=== PATIENT | male | born 1955 | race Caucasian/White ===

== ENCOUNTER 2020-12-04 11:06 | Emergency (ER) | payer MEDICARE, OTHER, SELFPAY ==
[2020-12-04] VITALS (23 sets, daily range): BP systolic 114–140; BP diastolic 80–102; PULSE 69–104; RESP 7–20; TEMP 36.8–36.9; O2SAT 91–97
--- NOTE | 2020-12-04 11:00 | RT.EKG_ITS ---
APPROVED REPORT Exam: Resting ECG Patient Location: E HR:97 bpm ECG Measurements Heart Rate 97 AXIS NV 238 P 9 QRSd 86 QRS -32 QT 344 T 36 QTc 438 Conclusion Sinus rhythm...normal P axis, V-rate 60- 99 Prolonged NV interval...NV >215, V-rate 91-120 Left axis deviation...QRS axis (-30,-90). No STEMI. I have reviewed and interpreted ECG and agree with software generated interpretation.
--- NOTE | 2020-12-04 11:15 | ED.GENADUL_ITS ---
Discharge Plan Disposition Patient Disposition: HOME Condition: Stable Discharge Details Clinical Impression: Atypical chest pain, Abdominal pain Primary Care Provider: Unknown,Unknown ED Provider: Stacia Garcia Home Meds and New Rx's Prescriptions: Continued saw palmetto 450 mg Capsule 900 mg PO QPM RF: 0 famotidine [Pepcid AC] 20 mg Tablet 20 mg PO QPM RF: 0 Discharge Instructions Instructions: Chest Pain (ED), Abdominal Pain (ED) Additional Instructions: You can consider stopping Pepcid and starting [id number] Prilosec once daily for the next 2 weeks to see if this helps your chest or abdominal pain. An order has been placed for an outpatient stress test. You will be contacted by the radiology department to schedule this outpatient stress test. You will receive a call from care management regarding a follow-up appointment with a primary care doctor to establish care and for referral to general surgery if your symptoms do not improve or worsen for consideration for upper endoscopy and also for consideration for outpatient pulmonary function test to rule out possible lung disease as a cause of your chronic shortness of breath. Return immediately to the emergency department if you develop any worsening or new concerning symptoms. Discharge Data Discharge Date/Time-TO BE ENTERED AT DEPARTURE: 12/04/20 15:03 Discharge Physician: Stacia Garcia Medical Decision Making 64-year-old male with a history of BPH, hernia repair and cholecystectomy presents for lower chest and upper abdominal pain for the past 2 days. EKG notes a rate 97, sinus, no STEMI, nondiagnostic. Patient has upper abdominal tenderness to palpation. Lungs clear. Presentation appears more likely consistent with a GI etiology rather than cardiac. Considering patient's age, will obtain a cardiac work-up, CT chest abdomen and pelvis and give Pepcid and GI cocktail reassess. Labs and imaging reviewed and unremarkable. Patient reassessed and he feels much better. We will plan on repeat troponin and EKG. Repeat troponin negative. Repeat EKG unchanged. Patient states that he has had chronic occasional shortness of breath with exertion over the past 5 or more years. He states he was exposed to smokers his whole life. He has not had a primary care doctor for several years. Will refer patient for outpatient stress test. Patient placed on care management list to arrange for a follow-up appointment with the primary care doctor to establish care to refer to surgery if symptoms do not improve or worsen for consideration for upper endoscopy or to respiratory therapy for pulmonary function test to rule out a pulmonary source. Usual and customary return precautions given prior to discharge. Medical Records Medical records reviewed: Yes I reviewed the patient's medical records. Imaging Data Radiologic Study: Radiologist's impression: CT CHEST PE ABD PELVIS W CLINICAL HISTORY: lower chest pain, upper abd pain, cough. TECHNIQUE: Imaging Protocol: Axial CT angiography was performed with multi- slice acquisition and multi-planar and/or 3D reconstructions. CONTRAST MATERIAL: Intravenous: Omnipaque 350 Contrast volume:100 mL COMPARISON: No exams were available for comparison FINDINGS: CHEST: Pulmonary Arteries: No evidence of filling defect to suggest pulmonary emboli. Tracheobronchial tree: Patent where visualized. Mediastinum and Adeline: No dominant adenopathy or fluid collection. Pulmonary parenchyma: No consolidation or dominant measurable mass. There are areas of atelectasis in the lungs. Pleura: No effusion or pneumothorax. Heart: Mild cardiomegaly. Mild coronary artery calcification. Aorta: Thoracic aorta non-dilated. Mild atherosclerosis. No dissection. Bones: Within normal limits for the patient's age. ABDOMEN: Liver: Normal density. No measurable mass. Portal, Superior Mesenteric, and Splenic Veins: Unremarkable. Gallbladder and Biliary Tract: Status post cholecystectomy. No significant biliary ductal dilatation. Pancreas: Normal density, no abnormal calcifications or inflammatory process. Spleen: Normal. Adrenals: No masses seen. Kidneys: Normal size, contour and axis. Nonobstructing 2 mm stone in the midpole of the left kidney. No masses seen. Abdominal Aorta: Abdominal portion non-dilated. Mild atherosclerosis. Bowel: No obstruction or bowel wall thickening. No evidence of appendicitis. Peritoneal Cavity: No ascites, collection or mesenteric inflammatory response. Lymph Nodes: Within normal limits. Bones: Unremarkable. Soft Tissues: Unremarkable. PELVIS: Bladder: Symmetric distention, no gross wall thickening. Reproductive Organs: The prostate gland is mildly enlarged. Lymph Nodes: Within normal limits. Bones: Within normal limits. IMPRESSION: 1. No evidence of pulmonary embolism, thoracic aortic dissection or aneurysm. 2. No acute pulmonary process. 3. No acute abdominal or pelvic process. 4. Findings were discussed with the emergency department on the date of the examination. Lab Data Lab results reviewed: Yes I reviewed the patient's lab results. Labs: Laboratory Tests Range/Units 12/04/20 12/04/20 12/04/20 11:17 11:17 11:17 WBC (4.4-10.8) 10^3/uL 6.96 RBC (4.36-5.78) 10^6/uL 5.14 Hgb (13.5-17.5) g/dL 16.2 Hct (40.0-50.0) % 47.2 MCV (80-95) fL 91.8 MCH (27.0-33.0) pg 31.5 MCHC (32.0-36.0) % 34.3 RDW (11.8-14.1) % 11.9 Plt Count (130-400) 10^3/uL 215 MPV (8.0-11.0) fL 9.8 Immature Gran % 0.3 Neutrophils % 74.8 Lymphocytes % 16.1 Monocytes % 8.0 Eosinophils % 0.4 Basophils % 0.4 Nucleated RBC % % 0 Absolute Neutrophils (1.2-6.7) 10^3/uL 5.20 Absolute Lymphocytes (1.2-3.4) 10^3/uL 1.12 L Absolute Monocytes (0.1-0.8) 10^3/uL 0.56 Absolute Eosinophils (0.0-0.7) 10^3/uL 0.03 Absolute Basophils (0.0-0.2) 10^3/uL 0.03 PT (9.3-11.0) sec 10.1 INR (0.9-1.1) 1.0 APTT (21.0-27.5) sec 25.7 Sodium (136-145) mmol/L 140 Potassium (3.5-5.1) mmol/L 3.7 Chloride (98-107) mmol/L 104 Carbon Dioxide (21.0-32.0) mmol/L 25.5 Anion Gap (3-11) mmol/L 10.5 BUN (7-18) mg/dL 12 Creatinine (0.70-1.30) mg/dL 1.0 Estimated GFR/1.73 m2 (mL/min/1.73m2) >= 60.00 Glucose (74-106) mg/dL 102 Calcium (8.5-10.1) mg/dL 9.3 Magnesium (1.8-2.4) mg/dL 2.0 Total Bilirubin (0.2-1.0) mg/dL 0.6 AST (15-37) U/L 14 L ALT (16-63) U/L 34 Alkaline Phosphatase (46-116) U/L 76 Troponin I (<0.06) ng/mL < 0.05 Total Protein (6.4-8.2) g/dL 7.7 Albumin (3.4-5.0) g/dL 4.0 Lipase (73-393) U/L COVID-19 Source SARS-CoV-2 (PCR) (Negative) Influenza Type A (PCR) (Negative) Influenza Type B (PCR) (Negative) RSV (PCR) (Negative) Range/Units 12/04/20 12/04/20 12/04/20 11:17 14:10 14:20 WBC (4.4-10.8) 10^3/uL RBC (4.36-5.78) 10^6/uL Hgb (13.5-17.5) g/dL Hct (40.0-50.0) % MCV (80-95) fL MCH (27.0-33.0) pg MCHC (32.0-36.0) % RDW (11.8-14.1) % Plt Count (130-400) 10^3/uL MPV (8.0-11.0) fL Immature Gran % Neutrophils % Lymphocytes % Monocytes % Eosinophils % Basophils % Nucleated RBC % % Absolute Neutrophils (1.2-6.7) 10^3/uL Absolute Lymphocytes (1.2-3.4) 10^3/uL Absolute Monocytes (0.1-0.8) 10^3/uL Absolute Eosinophils (0.0-0.7) 10^3/uL Absolute Basophils (0.0-0.2) 10^3/uL PT (9.3-11.0) sec INR (0.9-1.1) APTT (21.0-27.5) sec Sodium (136-145) mmol/L Potassium (3.5-5.1) mmol/L Chloride (98-107) mmol/L Carbon Dioxide (21.0-32.0) mmol/L Anion Gap (3-11) mmol/L BUN (7-18) mg/dL Creatinine (0.70-1.30) mg/dL Estimated GFR/1.73 m2 (mL/min/1.73m2) Glucose (74-106) mg/dL Calcium (8.5-10.1) mg/dL Magnesium (1.8-2.4) mg/dL Total Bilirubin (0.2-1.0) mg/dL AST (15-37) U/L ALT (16-63) U/L Alkaline Phosphatase (46-116) U/L Troponin I (<0.06) ng/mL < 0.05 Total Protein (6.4-8.2) g/dL Albumin (3.4-5.0) g/dL Lipase (73-393) U/L 97 COVID-19 Source Nasopharyx SARS-CoV-2 (PCR) (Negative) Negative Influenza Type A (PCR) (Negative) Negative Influenza Type B (PCR) (Negative) Negative RSV (PCR) (Negative) Negative ECG Data Attestation: I personally reviewed and interpreted this ECG (s) as follows: Interpretation: #1 -- Rate of 97, sinus, no acute ST elevation or depression. Prolonged WI interval. WI 238. QRS 86. QTc 438. #2 -- Rate of 92, sinus, no acute ST elevation or depression. Prolonged WI interval. WI 250. QRS 90. QTc 456. HPI General Mode of arrival: ambulatory . Date/Time Provider Initiated Documentation: 12/04/20 11:15 . Limitations to Documentation: no limitations . Information obtained by: patient . HPI Narrative: Patient is a 64-year-old male with a history of BPH, hernia repair and cholecystectomy presents for lower chest and upper abdominal pain for the past 2 days. Patient states he was walking in deep snow 2 days ago at home when he developed lower chest and upper abdominal pain. He states the pain is sharp and currently 5/10. He denies any aggravating or alleviating factors. He took Advil yesterday without relief. He states the pain has been constant but without radiation. He admits to a chronic cough with yellow sputum for the past year. He denies any fever, shortness of breath, dizziness, nausea, vomiting. He denies any recent travel, recent surgery or recent injury. Related Data Home Medications Medication Instructions Recorded Confirmed famotidine [Pepcid AC] 20 mg PO QPM 12/04/20 12/04/20 saw palmetto 900 mg PO QPM 12/04/20 12/04/20 Allergies Allergy/AdvReac Type Severity Reaction Status Date / Time No Known Allergies Allergy Unverified 12/04/20 11:19 Review of Systems All systems reviewed & are unremarkable except as noted in HPI and below Constitutional Constitutional: Reports as per HPI, Denies chills and Denies fever(s) Eyes Eyes: Denies blurry vision ENT Ears, Nose, Mouth, and Throat: Denies dizziness, Denies sore throat and Denies throat swelling Cardiovascular Cardiovascular: Denies chest pain and Denies dyspnea Respiratory Respiratory: Denies cough and Denies dyspnea Gastrointestinal Gastrointestinal: Reports abdominal pain, Denies diarrhea and Denies vomiting Genitourinary Genitourinary: Denies hematuria and Denies dysuria Musculoskeletal Musculoskeletal: Denies back pain and Denies numbness Integumentary/Breasts Skin/Breast: Denies lesions and Denies rash Neurologic Neurologic: Denies dizziness, Denies localized weakness and Denies numbness Allergic/Immunologic Allergic/Immunologic: Denies throat swelling [facility] Medical History (Updated 12/04/20 @ 14:33 by Stacia Garcia DO) BPH (benign prostatic hyperplasia) Surgical History (Updated 12/04/20 @ 11:49 by Stacia Garcia DO) History of hernia repair Hx of cholecystectomy Social History Smoking/Tobacco Use Status: Never Smoking risk assessment performed?: Yes Alcohol Intake: former Do you feel safe at home: Yes Do you feel safe in your relationship?: Yes Exam Const General: cooperative, healthy appearing and no acute distress HENMT Head: normal to inspection Face and sinus: normal facial exam Eyes General: appearance normal, both eyes and all related structures EOM: EOM intact bilaterally Neck Neck: normal visual inspection and No submandibular swelling Lymphatic: no lymphadenopathy noted Chest Chest: normal inspection of the chest and no tenderness Resp Effort & Inspection: normal respiratory effort and able to speak in complete sentences Auscultation: clear to auscultation bilaterally Cardio Rate: regular rate Rhythm: regular rhythm GI Inspection: normal to inspection Palpation: soft, not firm, not rigid and tender in the epigastrum, in the LUQ and in the RUQ Auscultation: normal bowel sounds Skin General skin exam: no rashes or lesions noted Neuro General: patient alert, patient awake and patient oriented x3 Cognition: normal cognition Speech: speech normal Motor: muscle tone normal throughout Sensory Exam: no sensory deficits noted Extrem General: normal to inspection, full ROM, capillary refill normal, no calf tenderness bilaterally and no edema Psych Appearance: grossly normal Mental Status: mental status grossly normal Speech and Movement: speech and movement normal Affect: normal affect
--- NOTE | 2020-12-04 11:30 | DI.CT_ITS ---
EXAM: CT CHEST PE ABD PELVIS W CLINICAL HISTORY: lower chest pain, upper abd pain, cough. TECHNIQUE: Imaging Protocol: Axial CT angiography was performed with multi-slice acquisition and mu lti-planar and/or 3D reconstructions. CONTRAST MATERIAL: Intravenous: Omnipaque 350 Contrast volume:100 mL COMPARISON: No exams were available for comparison FINDINGS: CHEST: Pulmonary Arteries: No evidence of filling defect to suggest pulmonary emboli. Tracheobronchial tree: Patent where visualized. Mediastinum and Adeline: No dominant adenopathy or fluid collection. Pulmonary parenchyma: No consolidation or dominant measurable mass. There are areas of atelectasis in the lungs. Pleura: No effusion or pneumothorax. Heart: Mild cardiomegaly. Mild coronary artery calcification. Aorta: Thoracic aorta non-dilated. Mild atherosclerosis. No dissection. Bones: Within normal limits for the patient's age. ABDOMEN: Liver: Normal density. No measurable mass. Portal, Superior Mesenteric, and Splenic Veins: Unremarkable. Gallbladder and Biliary Tract: Status post cholecystectomy. No significant biliary ductal dilatation . Pancreas: Normal density, no abnormal calcifications or inflammatory process. Spleen: Normal. Adrenals: No masses seen. Kidneys: Normal size, contour and axis. Nonobstructing 2 mm stone in the midpole of the left kidney. No masses seen. Abdominal Aorta: Abdominal portion non-dilated. Mild atherosclerosis. Bowel: No obstruction or bowel wall thickening. No evidence of appendicitis. Peritoneal Cavity: No ascites, collection or mesenteric inflammatory response. Lymph Nodes: Within normal limits. Bones: Unremarkable. Soft Tissues: Unremarkable. PELVIS: Bladder: Symmetric distention, no gross wall thickening. Reproductive Organs: The prostate gland is mildly enlarged. Lymph Nodes: Within normal limits. Bones: Within normal limits. IMPRESSION: 1. No evidence of pulmonary embolism, thoracic aortic dissection or aneurysm. 2. No acute pulmonary process. 3. No acute abdominal or pelvic process. 4. Findings were discussed with the emergency department on the date of the examination. RADIATION DOSE DELIVERED: 1,616.75mGy.cm Total DLP 1,616.75mGy.cm Total DLP DATA REPOSITORY: All CT scans at this facility are submitted to the National Radiology Data Registry (NRDR) Dose Index Registry (DIR) with the [employer] (A[employer]). RADIATION OPTIMIZATION: All CT scans at this facility use at least one of these dose optimization te chniques: automated exposure control; mA and/or kV adjustment per patient size (includes targeted exa ms where dose is matched to clinical indication); or iterative reconstruction.
[2020-12-04 12:01] LABS: Abs Immature Grans 0.02 10^3/uL (0.0-0.06); Absolute Basophil Count 0.03 10^3/uL (0.0-0.2); Absolute Eosinophil Count 0.03 10^3/uL (0.0-0.7); Absolute Lymphocyte Count 1.12 10^3/uL (1.2-3.4); Absolute Monocyte Count 0.56 10^3/uL (0.1-0.8); Basophils % 0.4; Eosinophils % 0.4; HCT 47.2 % (40.0-50.0); HGB 16.2 g/dL (13.5-17.5); Immature Grans % 0.3; Lymphocytes % 16.1; MCH 31.5 pg (27.0-33.0); MCHC 34.3 % (32.0-36.0); MCV 91.8 fL (80-95); MPV 9.8 fL (8.0-11.0); Neutrophils % 74.8; Nucleated RBC 0 %; Platelet Count 215 10^3/uL (130-400); RBC 5.14 10^6/uL (4.36-5.78); RDW 11.9 % (11.8-14.1); RDW-SD 40.5 fL; WBC 6.96 10^3/uL (4.4-10.8)
[2020-12-04] MEDS: Normal Saline 1,000 ML 1000 ML IV (12:01)
[2020-12-04] MEDS: FAMOTIDINE 20 MG/50 ML BAG 200 MG IVPB (12:03)
[2020-12-04 12:09] LABS: Lipase 97 U/L (73-393)
[2020-12-04 12:16] LABS: PTT Activated 25.7 sec (21.0-27.5); Prothrombin Time 10.1 sec (9.3-11.0)
[2020-12-04 12:18] LABS: ALT 34 U/L (16-63); AST 14 U/L (15-37); Alkaline Phosphatase 76 U/L (46-116); Anion Gap 10.5 mmol/L (3-11); BUN 12 mg/dL (7-18); Bilirubin, Total 0.6 mg/dL (0.2-1.0); CO2 25.5 mmol/L (21.0-32.0); Calcium 9.3 mg/dL (8.5-10.1); Chloride 104 mmol/L (98-107); Glucose 102 mg/dL (74-106); Potassium 3.7 mmol/L (3.5-5.1); Sodium 140 mmol/L (136-145); Total Protein 7.7 g/dL (6.4-8.2)
[2020-12-04 12:19] LABS: Troponin I < 0.05 ng/mL (<0.06)
[2020-12-04] MEDS: Omnipaque 350 MG/ML 50 ML BTL IJ ×4 (12:32→12:52)
[2020-12-04] MEDS: Normal Saline Flush 10 ML SYR IVP (12:33)
[2020-12-04] MEDS: Normal Saline - Diluent 50 ML VIAL IV ×2 (12:34→12:52)
--- NOTE | 2020-12-04 13:30 | RT.EKG_ITS ---
APPROVED REPORT Exam: Resting ECG Patient Location: E HR:92 bpm ECG Measurements Heart Rate 92 AXIS SD 250 P 20 QRSd 90 QRS -18 QT 368 T 23 QTc 456 Conclusion Sinus rhythm...normal P axis, V-rate 60- 99 Prolonged SD interval...SD >215, V-rate 91-120 Low voltage, precordial leads...precordial leads <1.0mV I have reviewed and interpreted ECG and agree with software generated interpretation.
--- NOTE | 2020-12-04 14:27 | NUR.NOTE ---
Addendum entered by Liss Long 12/04/20 14:51: Stress test requisition sent to DI, instruction sheet given to patient. Original Note: Referral to Care Management to get patient follow up derrick. He needs to establish pcp and be seen for chest pain and an exercise stress test.Nursing Note:
[2020-12-04 14:44] LABS: Troponin I < 0.05 ng/mL (<0.06)
[2020-12-04 14:58] LABS: COVID-19 PCR Negative (Negative); Influenza A PCR Negative (Negative); Influenza B PCR Negative (Negative); RSV PCR Negative (Negative)
--- NOTE | 2020-12-05 09:58 | CMPROGNOTE_ITS ---
- If Service Date Differs Date of service: 12/05/20 Time of Service: 09:58 Care Management Progress Note Nino is seen in the ED on 12/04/2020 for chest pain and abdominal pain. At the request of ED provider, MANFRED coordinates a referral to Melyssa Murry of [facility], on-call provider, to assist Nino in obtaining a follow up appointment and in establishing care with a PCP.
== END 2020-12-04 15:03 | disposition home or self-care (01) ==
PROVIDERS: Emergency Provider Physician Assistant
DX: R07.89 Other chest pain (principal); R10.10 Upper abdominal pain, unspecified; Z03.818 Encounter for observation for suspected exposure to other biological agents ruled out
CPT/HCPCS: 36415; 71275; 74177; 80053; 83690; 93005; 96361; 96374; 99285; 83735; 84484; 85025; 85610; 85730; 93010; Q9967

== ENCOUNTER 2020-12-08 19:58 | Outpatient (REF) | payer MEDICARE, OTHER, SELFPAY ==
[2020-12-08 21:33] LABS: Calculated LDL 99 mg/dL (<100); Cholesterol 182 mg/dL (<200); HDL Cholesterol 40 mg/dL (40-60); Triglyceride 219 mg/dL (<150)
[2020-12-10 10:52] LABS: Alpha 1 Antitrypsin,Serum 142 mg/dL (90-200)
== END 2020-12-08 19:59 | disposition home or self-care (01) ==
LOC: NCHCN 19:58
PROVIDERS: Visit Provider Family Medicine
DX: R07.89 Other chest pain (principal); R06.00 Dyspnea, unspecified; R10.9 Unspecified abdominal pain
CPT/HCPCS: 80061; 82103

== ENCOUNTER 2020-12-09 12:53 | Outpatient (REF) | payer MEDICARE, SELFPAY ==
[2020-12-11 15:19] LABS: Helicobacter pylori Ag, Feces Negative (Negative)
== END 2020-12-09 12:54 | disposition home or self-care (01) ==
LOC: NCHCN 12:53
PROVIDERS: Visit Provider Family Medicine
DX: R10.9 Unspecified abdominal pain (principal)
CPT/HCPCS: 87338

== ENCOUNTER 2020-12-16 01:00 | Outpatient (CLI) | payer MEDICARE, OTHER, SELFPAY ==
--- NOTE | 2020-12-16 09:00 | ETT_ITS ---
APPROVED REPORT Exam: Exercise Treadmill Patient Location: Out-Patient Room/Bed: Stress Nurse: Emily Paredes RN Ordering Provider:CASANDRA ROCHE, Contact Number: [phone] BMI: 30.60 Baseline Rhythm: 1DHB Comment: biphasic P wave in lead V1 Indications: TYPICAL CHEST PAIN. Medical History Medical History: BPH Cardiac Medications: Aspirin, Prilosec, Allergies: NKDA Cardiac Risk Factors: None. Previous Cardiac Procedures: None. Pretest Chest Pain Characteristics: None. Exercise History: Sedentary Physical Disabilities: None. Lung Sounds: Clear to auscultation Heart Sounds: Regular Stress Test Details Test: Exercise stress testing was performed using a modified Андрей protocol. Rest Stress HR Resting HR Supine: 84 bpm Max Heart Rate (APMHR): 153 bpm Resting HR Standin bpm Target HR (85% APMHR): 130 bpm Max HR Achieved: 157 bpm % of APMHR: 102 Recovery HR: 96 bpm HR response to stress: Accelerated HR response to stress BP Resting BP Supine: 130/74 mmHg Resting BP Standin/74 mmHg Max BP: 156/72 mmHg Recovery BP: 138/74 mmHg BP response to stress: Normal blood pressure response to stress. ECG Resting ECst degree AV block Ectopy: None Comment: Biphasic P wave in lead V1 Stress ECG: , Sinus Tachycardia ST Change: No significant ST segment changes noted Arrhythmia: None Recovery ECst degree AV block, Recovery ST Change: No significant ST segment changes noted Recovery Arrhythmia: None. Clinical Reason for Termination: Fatigue, Dyspnea, Knee Pain Stress Symptoms: Leg Fatigue, Dyspnea, General Fatigue Exercise duration: 3 min13 sec Exercise capacity: 4.6 METs Taylor Treadmill Score: 2.5 Rate Pressure Product: [id number] Stress ECG Conclusion 1. The resting electrocardiogram showed first-degree AV block 2. Patient exercised on the modified Андрей protocol and completed a workload of 4.6 METS, limited by fatigue and shortness of breath 3. Rapid heart rate response to exercise suggests deconditioning. Normal blood pressure response to exercise. 4. Patient achieved greater than 100% of predicted heart rate for age 5. Electrocardiographically there was no evidence of myocardial ischemia 6. There were no significant dysrhythmias Taylor Treadmill Score is 2.5 which is Moderate risk. Stress Test Summary STAGE Time (mins) Speed (mph) Grade (%) HR BP SYMPTOMS METS Supine 84 130/74 Standing 91 126/74 1 3 1.7 10 150 148/72 SpO2 94% 4.6 1 min recovery 132 3 min recovery 104 156/72 6 min recovery 96 138/74 Patient with difficulty walking on treadmill, pushing treadmill belt and not standing upright, megan bravo significant artifact. Patient states he is unable to go faster than 1.7 mph, therefore in stage II speed was decreased to encourage continuation of exercise. 13 seconds in patient stated he could not walk on the treadmill any longer.
== END 2020-12-16 01:20 ==
PROVIDERS: PCP Family Medicine; Visit Provider Family Medicine
DX: R07.89 Other chest pain (principal)
CPT/HCPCS: 93016; 93018; 93017

== ENCOUNTER 2020-12-26 09:42 | Outpatient (CLI) | payer MEDICARE, OTHER, SELFPAY ==
[2020-12-26 10:16] LABS: Source Nasal/Nares
[2020-12-26 14:35] LABS: COVID-19 PCR Negative (Negative)
== END 2020-12-26 09:43 | disposition home or self-care (01) ==
PROVIDERS: PCP Family Medicine; Visit Provider Family Medicine
DX: Z20.822 Contact with and (suspected) exposure to COVID-19 (principal)
CPT/HCPCS: 87635

== ENCOUNTER → 2021-01-20 09:19 | Outpatient (BNVA) | payer MEDICARE, OTHER, SELFPAY | PROVIDERS: PCP Family Medicine; Referring Provider Family Medicine; Visit Provider Surgery | DX: K21.9 Gastro-esophageal reflux disease without esophagitis (principal); Z12.11 Encounter for screening for malignant neoplasm of colon; R00.0 Tachycardia, unspecified | CPT/HCPCS: 99203; 99215 ==

== ENCOUNTER 2021-02-03 12:33 | Outpatient (RCR) | payer MEDICARE, OTHER, SELFPAY ==
--- NOTE | 2021-02-03 07:45 | HOLTER_ITS ---
APPROVED REPORT This was a 48-hour Holter monitor ordered for the indication of palpitations Rhythm throughout was sinus with an average heart rate of 74. Minimum was 59, maximum 134 There were 2 isolated PVCs There were a total of 51 atrial premature beats There was no atrial fibrillation, no pauses greater than 3 seconds, no high-grade AV block Impression; unremarkable Holter monitor without significant dysrhythmia
== END 2021-03-02 23:59 | disposition home or self-care (01) ==
LOC: RT 12:33
PROVIDERS: PCP Family Medicine; Visit Provider Family Medicine
DX: R00.2 Palpitations (principal); I49.3 Ventricular premature depolarization; I49.1 Atrial premature depolarization
CPT/HCPCS: 93227; 93225; 93226

== ENCOUNTER 2021-02-11 02:09 | Outpatient (CLI) | payer MEDICARE, OTHER, SELFPAY ==
--- NOTE | 2021-02-11 07:34 | DI.US_ITS ---
APPROVED REPORT EXAM: Comprehensive 2D, Doppler, and color-flow Echocardiogram Patient Location: Out-Patient [place] Operator: Nohemy Crump RDCS (AE) Indications: Palpitations Other Information Study Quality: Adequate Conclusion Left Ventricle : The left ventricle is normal size. The left ventricular systolic function is normal. The left ventricular ejection fraction is within the normal range. There is normal left ventricular wall thickness. There is normal LV segmental wall motion. The left ventricular diastolic function is normal. LVEF is 65%. Right Ventricle : The right ventricle is normal size. The right ventricular systolic function is norm al. The RVSP is 28.5 mmHg. Atria : The left atrium size is normal. The right atrium size is normal. Valves: There are no hemodynamically significant valvular lesions. Great Vessels : The ascending aorta is dilated (4.1cm). Ascending aorta is not well visualized. Wall motion Left Ventricle The left ventricle is normal size. The left ventricular systolic function is normal. The left ventric ular ejection fraction is within the normal range. There is normal left ventricular wall thickness. T here is normal LV segmental wall motion. The left ventricular diastolic function is normal. There is no ventricular septal defect visualized. LVEF is 65%. Right Ventricle The right ventricle is normal size. The right ventricular systolic function is normal. The RVSP is 28 .5 mmHg. Atria The left atrium size is normal. The right atrium size is normal. The interatrial septum is intact wit h no evidence for an atrial septal defect. Aortic Valve The aortic valve is normal in structure. Aortic valve is trileaflet. There is no aortic valvular sten osis. No aortic regurgitation is present. Mitral Valve The mitral valve is normal in structure. No evidence of mitral valve stenosis. Trace mitral regurgita tion. Tricuspid Valve The tricuspid valve is normal in structure. There is no tricuspid valve stenosis. Trace to mild tricu spid regurgitation. Pulmonic Valve The pulmonary valve is normal in structure. There is no pulmonic valvular stenosis. Trace pulmonic re gurgitation. Great Vessels The aortic root is normal in size. The ascending aorta is dilated (4.1cm). Ascending aorta is not wel l visualized. IVC is normal in size and collapses >50% with inspiration. Pericardium There is no pericardial effusion. 2D Dimensions IVSD d PLAX 0.85 cm M: 0.6-1.2 LV Vol A2C d MOD 104.0 mL LVPW d PLAX 0.84 cm M: 0.6 - 1.2 LV Vol A4C d MOD 91.7 mL LVID d PLAX 4.24 cm M: 4.2 - 5.8 LA vol/ BSA A2C s A-L 25.1 mL/m2 LVDs 2.65 cm M: 2.5 - 4.0 LA vol/ BSA A4C s A-L 23.2 mL/m2 Ao Root d 3.42 cm M: 3.1 - 3.7 LA Vol/ BSA Biplane s A-L 24.3 mL/m2 RA Area A4C 16.80 cm2 LA Area A4C s MOD 19.49 cm2 RA Vol/ BSA A4C s A-L 17.7 mL/m2 LA Area A2C s MOD 20.39 cm2 Ao Asc Diam d 4.09 cm M: 2.6 - 3.4 LV EF A4C MOD 67.5 % LV EF Teichholz 66.8 % LV EF A2C MOD 64.1 % LVEF (Porter's) 65.76 % M: 52 - 72 LV EF Biplane MOD 65.8 % LV Volume 73.17 mL M: 62 - 150 SV 66.89 mL LV Volume Index 32.09 mL/m2 M: 34 - 74 SV Index 29.33 mL/m2 LV Vol Biplane MOD 101.7 mL FS 36.60 % M-Mode TAPSE 2.62 cm (M/F) >1.7 LV Diastology MV E' medial 0.086 (>0.07 m/s) E/A Ratio 1.2 LV E/e MED 11.50 (<14) MV E Vmax 0.98 (0.4-1.3 m/s) MV E' lateral 0.119 (>0.1 m/s) MV A Vmax 0.80 (0.4-1.3 m/s) LV E/e LAT 8.30 (<14) MV E/A Ratio 1.18 MV E/E' medial 11.50 MV E/E' lateral 8.30 Aortic Valve LVOT Area 3.58 cm2 AoV Area Vmax 2.90 cm2 LVOT Vmax 1.17 m/s AoV Area/ BSA (Vmax) 1.27 cm2/m2 LVOT Mean Lam. 0.70 m/s SOFIA Mean Lam. 2.44 cm2 LVOT Peak Grad 5.5 mmHg SOFIA Mean Lam. Index 1.07 cm2/m2 LVOT Mean Grad 2.4 mmHg LVOT VTI 0.239 m LVOT Diam s 2.10 cm AoV Vmax 1.45 m/s Velocity Ratio 0.80 AoV Mean Lam. 1.02 m/s AoV Peak Grad 8.4 mmHg LVOT SV 85.34 mL AoV Mean Grad 4.7 mmHg AoV VTI 0.258 m AoV Area VTI 3.31 cm2 AoV Area/ BSA (VTI) 1.45 cm/m2 Mitral Valve MV DT 355 (160-240 msec) MV PHT 103 msec MV Area PHT 2.14 cm2 MV VTI 0.323 m MV Area VTI 2.64 (4.0-6.0 cm2) Pulmonary Valve PV Vmax 1.42 (0.5-1.5 m/s) RVOT Peak Gr. 3.37 mmHg PV Peak Grad 8.0 mmHg RVOT Mean Gr. 1.75 mmHg PV Mean Grad 3.8 mmHg RVOT VTI 0.178 m PV VTI 0.256 m RVOT Vmax 0.92 m/s Tricuspid Valve TR Peak Grad 25.5 mmHg TR Vmax 2.53 m/s RA Pressure 3.00 mmHg RVSP (TR) 28.5 mmHg
== END 2021-02-11 02:29 ==
PROVIDERS: PCP Family Medicine; Visit Provider Family Medicine
DX: R00.2 Palpitations (principal); I77.810 Thoracic aortic ectasia
CPT/HCPCS: 93306

== ENCOUNTER → 2021-05-21 12:54 | Outpatient (BNVA) | payer MEDICARE, OTHER, SELFPAY | PROVIDERS: PCP Family Medicine; Referring Provider Family Medicine; Visit Provider Physical Therapy Assistant | DX: K21.9 Gastro-esophageal reflux disease without esophagitis (principal); Z12.11 Encounter for screening for malignant neoplasm of colon; Z80.0 Family history of malignant neoplasm of digestive organs | CPT/HCPCS: 99214 ==

== ENCOUNTER 2021-05-29 02:36 | Outpatient (CLI) | payer MEDICARE, OTHER, SELFPAY ==
[2021-05-29 12:00] LABS: Source Nasal/Nares
[2021-05-29 16:58] LABS: COVID-19 PCR Negative (Negative)
== END 2021-05-29 02:37 | disposition home or self-care (01) ==
LOC: LBO 02:36
PROVIDERS: PCP Family Medicine; Visit Provider Surgery
DX: Z20.822 Contact with and (suspected) exposure to COVID-19 (principal)
CPT/HCPCS: 87635

== ENCOUNTER 2021-06-01 07:49 | Day surgery (SDC) | payer MEDICARE, OTHER, SELFPAY ==
--- NOTE | 2021-06-01 06:51 | ENDO_ITS ---
Date of service: 06/01/21 Time of Service: 09:05 Endoscopy Report DATE OF PROCEDURE: 06/01/21 PRE-OP DIAGNOSIS: Colon Cancer Screening/Family history of colon cancer and GERD PROCEDURE: 1. EGD with biopsies 2. Colonoscopy with polypectomy SURGEON: Dianne Fay ANESTHESIA TYPE: General:No Airway (ASA 2/ Umberto Mccall CRNA) ESTIMATED BLOOD LOSS: 3 PATHOLOGY: other (duodenal bx, gastric bx, GE junction bx, Ascending polyps, transverse polyps, sigmoid polyps and rectal polyp) COMPLICATIONS: None DISPOSITION: same day INDICATIONS: 65 y/o male with history of GERD presents for colonoscopy screening pre-op. He reports a family history of colon cancer in his Mother in her 60s. He denies any changes in bowel habits including bloody or black tarry stools, abdominal pain, diarrhea or constipation. He reports long standing GERD, which has been well controlled with Famotidine. He denies constitutional symptoms. Denies use of marijuana or any other recreational or illegal drugs. He was previously seen by Dr. Fay, with plan to have further cardiac work up. PCP followed up and patient has received cardiac clearance with a normal Echo. He denies chest pain, palpitations, dyspnea or dyspnea with exertion. He walks 1.5-2 miles at least four times per week. He denies prior history or family history of adverse reactions or complications with anesthesia. The patient denies any history of stroke, [place], seizures, bleeding or clotting disorders. He denies having any implanted metal in his body. PREP: Miralax/Dulcolax PROCEDURE START TIME: 09:05 PROCEDURE END TIME: 09:43 COLONOSCOPY RETRACTION TIME: 17 minutes FINDINGS: Ingflammation of the duodenum, stomach and esophagus Multiple sessile polyps PROCEDURE DESCRIPTION: After informed consent was obtained the patient was take to the procedure room and placed in a supine position. Monitors were juan carlos lied and a time out was done. The patients name, date of , procedure type, allergies to medications and metal in their body was reviewed. A bite block was placed and the patient was sedated. Once sedated and comfortable the gastroscope was advanced through the oropharynx which was grossly normal into the esophagus. The proximal and mid- esophagus were normal. In the distal esophagus there was inflammation noted. The scope was advanced into the stomach and through the pylorus into the 3rd portion of the duodenum. The duodenum was noted have inflammation in the 1st portion. Biopsies were done. The scope was retracted back into the stomach. There was inflammation noted at the pylorus with some ulcers as well as in the rest of the stomach. There were also a number of benign appearing gastric polyps. Biopsies were done to rule out H. pylori. The scope was retro-flexed. The cardia and fundus were noted to be normal. There was no hiatal hernia noted. The scope was retracted back into the esophagus and biopsies were done of the GE junction to rule out Reyes's. The Z line was regular. The GE junction was at 38 cm. While the patient was still sedated they were placed in a left decubitous position. A rectal exam was done. External exam revealed small hemorrhoids. Internal exam revealed a normal sphincter tone and no palpable masses. The prostate felt smooth. The scope was then introduced and retro-flexed. No internal hemorrhoids, masses or polyps were identified on retroflexion. The scope was then advanced to the cecum without difficulty. The ileocecal valve and appendiceal orifice were identified. The scope was advanced into the terminal ileum and was normal. The prep was adequate. The scope was then slowly retracted over 17 minutes back into the rectum. Polyps were removed with with a snare in the ascending colon and with cold forceps in the ascending, transverse, sigmoid colon and rectum. There was no diverticulosis noted. The scope was removed and the patient was woken up and taken back to Same day surgery in stable condition. The patient tolerated the procedure well and there were no immediate complications. Follow up: 3-5 years
--- NOTE | 2021-06-01 06:52 | W.PM.DSUDISC ---
Discharge Plan Disposition Patient Disposition: HOME Condition: Good Discharge Details Reason For Visit: Colonoscopy and EGD Attending Provider: Dianne Fay Primary Care Provider: Juan Menendez Home Meds and New Rx's Prescriptions: New famotidine 40 mg tablet 40 mg PO BID Qty: 60 RF: 3 Continued aspirin [Adult Aspirin Regimen] 81 mg tablet,delayed release (DR/EC) 81 mg PO DAILY RF: 0 multivitamin Tablet 1 tab PO DAILY RF: 0 saw palmetto 450 mg Capsule 900 mg PO QPM RF: 0 Discontinued bisacodyl [Dulcolax (bisacodyl)] 5 mg tablet,delayed release (DR/EC) 5 mg PO ONCE Qty: 4 RF: 0 polyethylene glycol 3350 17 gram/dose powder 238 g PO ONCE Qty: 238 RF: 0 famotidine [Pepcid AC] 20 mg Tablet 20 mg PO QPM RF: 0 Discharge Instructions Instructions: Diet for Stomach Ulcers and Gastritis (ED), Duodenitis (DC), Gastritis (DC), Gastric Polyps (DC), Esophagitis (DC), Colorectal Polyps (DC) Additional Instructions: Findings: Inflammation of thye small bowel, stomach and esophagus Multiple polyps Follow up: 3-5 years Please call if you develop: fevers >101.5 Nausea or Vomiting Abdominal pain that is not transient Rectal bleeding that is more then a tbsp A hard abdomen and inability to pass gas DAY SURGERY UNIT POST ENDOSCOPY INSTRUCTIONS Instructions for everyone who is given Anesthesia: For your safety, please do the following for the next 24 Hours: a. Do not drive or operate dangerous equipment b. Do not drink alcohol beverages or use any recreational drugs for the first 24 hours or while taking pain medications. The medications in your body may have a reaction that can be dangerous. c. Do not make any important decisions or sign any important papers 1. Generally there are no restrictions on your activity after a day or so has gone by, but you may feel a bit fatigued for a few days. 2. After you arrive home you may have a light meal and return to a normal diet as you can tolerate it without feeling sick to your stomach. 3. After surgery, you may feel pain or discomfort. This should be only transient, but if it persists please contact your doctor. 4. If there are any questions regarding the findings of your procedure, please feel free to contact your doctor. 6. If you are unable to contact your doctor with a problem, contact the hospital at [phone]. 7. Continue all your regular medications unless directed otherwise. I understand the above instructions and have no questions. Signature of Patient or Responsible Adult Escort Date/Time Name of Responsible Adult Escort Signature of Nurse Date/Time Activity:: Activity as Tolerated Diet:: low acid Discharge Orders Discharge Orders: Discharge Order (Routine); Ordered 06/01/21 Ordered By: Dianne Fay
[2021-06-01 08:08] VITALS: BP 150/80; PULSE 103; RESP 18; TEMP 36.2; O2SAT 95
[2021-06-01] MEDS: Lactated Ringers 1,000 ML 80 ML IV (08:28)
--- NOTE | 2021-06-01 08:28 | ANES.PREOP_ITS ---
General Info Date of Service Date Performed: 06/01/21 Height: 6 ft 1 in Weight: 103.2 kg Body Mass Index (BMI): 29.9 Surgical Procedure: Operation Date: 06/01/21 09:05 Proposed Procedures Side Surgeon p Colonoscopy/Gastroscopy Dianne Fay MD Meds Allergies and Home Medications Allergies Allergy/AdvReac Type Severity Reaction Status Date / Time No Known Allergies Allergy Unverified 05/29/21 11:06 Home Medication Medication Instructions Recorded famotidine [Pepcid AC] 20 mg PO QPM 12/04/20 saw palmetto 900 mg PO QPM 12/04/20 aspirin 81 mg tablet,delayed 81 mg PO DAILY 01/20/21 release multivitamin 1 tab PO DAILY 01/20/21 bisacodyl 5 mg tablet,delayed 5 mg PO ONCE #4 tab 05/21/21 release polyethylene glycol 3350 17 238 g PO ONCE #238 g 05/21/21 gram/dose oral powder Current Visit Medications: Current Medications Generic Name Dose Route Start Last Admin Trade Name Benjaq PRN Reason Stop Dose Admin Hyoscyamine Sulfate 0.125 mg 06/01/21 06:52 Hyoscyamine 0.125 Mg Sl/Oral/Chew SL DIRECTED PRN Ringer's Solution 1,000 mls @ 80 mls/hr 06/01/21 06:00 IV 06/28/21 23:59 [facility] IV Miscellaneous Supplies 1 each 06/01/21 06:00 Iv Access IV 06/28/21 23:59 DIRECTED LISA Ondansetron HCl 4 mg 06/01/21 06:52 Ondansetron 4 Mg/2 Ml Vial IVP Q4H PRN PRN Nausea / Vomiting Sodium Chloride 0 ml 06/01/21 06:00 Normal Saline Flush 10 Ml Syr IV 06/28/21 23:59 PRN PRN Sodium Chloride 0 ml 06/01/21 06:00 Normal Saline 10 Ml Vial IJ 06/28/21 23:59 DIRECTED PRN Sterile Water 0 ml 06/01/21 06:00 Water,Injection,Sterile 10 Ml Vial IJ 06/28/21 23:59 DIRECTED PRN PFSH Active Problems Active Problems: Problem Status Onset Code Abdominal pain R10.9 Tachycardia R00.0 Gastroesophageal reflux disease K21.9 Medical History Medical History Atypical chest pain pt. had pre op ECHO BPH (benign prostatic hyperplasia) Dyspnea Gastroesophageal reflux disease Surgical History Surgical History History of hernia repair Hx of cholecystectomy Tobacco Smoking/Tobacco Use Status: Never Alcohol Alcohol Intake: former Substance Use Substance use: Never Substance use type: does not use Vital Signs and Lab Results Vital Signs Most Recent Vital Signs in EMR: Most Recent Vital Signs Temp Pulse Resp BP Pulse Ox 36.2 C L 103 H 18 150/80 H 95 06/01/21 08:08 06/01/21 08:08 06/01/21 08:08 06/01/21 08:08 06/01/21 08:08 Lab Results Blood Type / Crossmatch: No Data to Display Complete Blood Count: No Data to Display Complete Metabolic Panel: No Data to Display Liver Function Panel: No Data to Display Coagulation Panel: No Data to Display Cardiac Panel: No Data to Display Arterial Blood Gas: No Data to Display Venous Blood Gas: No Data to Display Pancreas Panel: No Data to Display Thyroid Panel: No Data to Display Infectious Disease: Coronavirus (COVID-19)(PCR) Negative (Negative) 05/29/21 09:00 05/29/21 Coronavirus 2019 Source Nasal/Nares 05/29/21 09:00 05/29/21 Blood Cultures: No Data to Display Toxicology Panel: No Data to Display Imaging and Studies Imaging and Studies EKG Summary: 12/04/20: SR, prolonged IL. Stress Test Summary: 12/16/20: first degree, 4.6 METS, rapid HR response to exercise suggests deconditioning. acheived greater than 100% of predicted HR. no evidence of ischemia. 2.5 marrufo score - moderate risk. Echocardiogram Summary: 02/11/21: LVEF 65%. RVSP 28.5. 4.1 cm ascending Ao dilation. Anesthesia Assessment and Plan Anesthesia History Personal History: No History of Anesthesia Complications Family History: No Family History of Anesthesia Complications Exercise Tolerance Exercise Tolerance: Metabolic Equivalents>4 Cardiac & Pulmonary Exam Cardiac Exam: Normal S1/S2 Heart Sounds Pulmonary Exam: Clear Bilateral Breath Sounds Airway Exam Known Difficult Airway: No Mallampati Class: 2 Mouth Opening: Normal (> 3cm) Thyromental Distance: Greater than 3 cm Neck Range of Motion: Limited ROM Neck Circumference: Normal Teeth Condition: Normal Dentition ASA Classification ASA Score: ASA 2 Emergency Case?: No NPO Status NPO Status: NPO Clears >2 hours, Solids >8 hours Anesthesia Plan Resuscitation Status: Full Code Anesthesia Technique: General Anesthesia Airway Planned: Natural Airway Monitors Used: Standard Monitors Preoperative Comments:: 65 yo male for colonoscopy and EGD for screening and GERD.
[2021-06-01 08:32] VITALS: BP 120/86; PULSE 96
[2021-06-01 08:48] VITALS: BMI 29.9
--- NOTE | 2021-06-01 09:08 | BOWEL_PTH ---
PATIENT: Nino Whatley LOC: [facility] U#:[id number] AGE/SX: 65/M ROOM: RE06/01/[address]: Dianne Fay MD : [id number] BED: DIS: 06/01/2021 SPEC #: [id number] RECD: 06/01/21 12:30 STATUS: PADMINI REBibiana #: [id number] DANIEL: 06/01/21 09:[address]: Dianne Fay DEPT: Surgical Specimen RECD BY: Kacie Leal ENTERED: 06/01/21 12:35 SP TYPE: Bowel OTHR DR: Juan Menendez Tissues: 1 - BIOPSY BOWEL 2 - STOMACH BIOPSY 3 - STOMACH BIOPSY 4 - STOMACH BIOPSY 5 - ESOPHAGUS BIOPSY 6 - BIOPSY BOWEL 7 - BIOPSY BOWEL 8 - BIOPSY BOWEL 9 - BIOPSY BOWEL Procedures: GROSS AND MICRO LEVEL 4 IMMUNOPEROXIDASE STAIN SPECIAL STAIN 1 Comments: [id number]
[2021-06-01 09:50] VITALS: BP 89/61; PULSE 87; RESP 16; TEMP 36; O2SAT 93
[2021-06-01 09:57] VITALS: BP 100/61; PULSE 87; RESP 16; TEMP 36; O2SAT 93
[2021-06-01 10:14] VITALS: BP 106/66; PULSE 80; RESP 16; TEMP 36; O2SAT 93
--- NOTE | 2021-06-01 10:17 | W.ANESPOSTOP ---
Postoperative Evaluation Date, Time and Location Date Performed: 06/01/21 Time Performed: 10:17 Patient Location: Day Surgery Unit Vital Signs Most Recent Imported Vital Signs: Most Recent Vital Signs Temp Pulse Resp BP Pulse Ox 36 C L 80 16 106/66 93 06/01/21 10:14 06/01/21 10:14 06/01/21 10:14 06/01/21 10:14 06/01/21 10:14 Pain Score Most Recent Pain Score: Most Recent Pain Score Pain Level 0 06/01/21 10:14 Assessment Mental Status: Awake (Alert & Oriented to Patient Baseline) Airway and Respiratory Function: Patent airway with normal (patient baseline) respiratory exam Cardiovascular Function: Hemodynamically Stable Hydration Status: Adequately Hydrated Nausea & Vomiting: No Nausea or Vomiting Pain: Pt. Denies Any Pain Peripheral Nerve Block: Patient did not receive a nerve block
== END 2021-06-01 10:59 | disposition home or self-care (01) ==
LOC: SUR 07:50
PROVIDERS: PCP Family Medicine; Visit Provider Surgery
PROC: (CPT 45385; principal; 2021-06-01 09:00)
DX: Z12.11 Encounter for screening for malignant neoplasm of colon (principal); K21.9 Gastro-esophageal reflux disease without esophagitis; K26.9 Duodenal ulcer, unspecified as acute or chronic, without hemorrhage or perforation; K25.9 Gastric ulcer, unspecified as acute or chronic, without hemorrhage or perforation; K22.70 Barrett's esophagus without dysplasia; K31.7 Polyp of stomach and duodenum; D12.3 Benign neoplasm of transverse colon; D12.2 Benign neoplasm of ascending colon; K62.1 Rectal polyp; Z80.0 Family history of malignant neoplasm of digestive organs
CPT/HCPCS: 45385; 45380; 43239; 88305; 88312; 88361; J2704

== ENCOUNTER → 2021-06-12 09:29 | Outpatient (BNVA) | payer MEDICARE, OTHER, SELFPAY | PROVIDERS: PCP Family Medicine; Referring Provider Family Medicine; Visit Provider Surgery | DX: Z48.815 Encounter for surgical aftercare following surgery on the digestive system (principal); K29.60 Other gastritis without bleeding; K29.80 Duodenitis without bleeding; K22.70 Barrett's esophagus without dysplasia; D36.9 Benign neoplasm, unspecified site | CPT/HCPCS: 99212 ==

== ENCOUNTER 2021-07-01 14:14 | Emergency (ER) | payer MEDICARE, OTHER, SELFPAY ==
[2021-07-01 14:18] VITALS: BP 140/80; PULSE 77; RESP 16; TEMP 36.2; O2SAT 97
[2021-07-01 14:52] VITALS: RESP 18
[2021-07-01] MEDS: Normal Saline Flush 10 ML SYR IVP ×2 (15:47→17:31)
[2021-07-01 15:52] LABS: Abs Immature Grans 0.02 10^3/uL (0.0-0.06); Absolute Basophil Count 0.06 10^3/uL (0.0-0.2); Absolute Eosinophil Count 0.11 10^3/uL (0.0-0.7); Absolute Lymphocyte Count 1.33 10^3/uL (1.2-3.4); Absolute Monocyte Count 0.86 10^3/uL (0.1-0.8); Absolute Neutrophil Count 4.24 10^3/uL (1.2-6.7); Basophils % 0.9; Eosinophils % 1.7; HCT 44.9 % (40.0-50.0); HGB 14.9 g/dL (13.5-17.5); Immature Grans % 0.3; Lymphocytes % 20.1; MCH 30.8 pg (27.0-33.0); MCHC 33.2 % (32.0-36.0); MPV 9.5 fL (8.0-11.0); Nucleated RBC 0 %; Platelet Count 185 10^3/uL (130-400); RBC 4.83 10^6/uL (4.36-5.78); RDW-SD 41.6 fL; WBC 6.62 10^3/uL (4.4-10.8)
[2021-07-01 15:59] LABS: Bilirubin Negative (Negative); Blood Negative (Negative); Clarity Clear (Clear); Glucose Negative (Negative); Ketones Negative (Negative); Leukocyte Esterase Negative (Negative); Nitrite Negative (Negative); Specific Gravity 1.025 (1.005-1.025); pH 5.5 (5-8)
--- NOTE | 2021-07-01 16:00 | DI.CT_ITS ---
Exam(s) CT ABDOMEN PELVIS W EXAM: CT ABDOMEN PELVIS W CLINICAL HISTORY: pain in perineum with swelling, pt reduced mass TECHNIQUE: Imaging Protocol: Axial computed tomography images with coronal and sagittal reformatted images were created and reviewed CONTRAST MATERIAL: Intravenous: Omnipaque 350 Contrast volume:100 mL Oral: No COMPARISON: CT CT CHEST PE ABD PELVIS W from 12/04/2020 FINDINGS: ABDOMEN: Lung Bases: Normal where visualized. Liver: Normal density. No measurable mass. Portal, Superior Mesenteric, and Splenic Veins: Unremarkable. Gallbladder and Biliary Tract: Status post cholecystectomy. No biliary ductal dilatation. Pancreas: Normal density, no abnormal calcifications or inflammatory process. Spleen: Normal. Adrenals: No masses seen. Kidneys: Normal size, contour and axis. There is a 2 mm nonobstructing stone in the upper pole of the left kidney. No masses seen. Abdominal Aorta: Abdominal portion non-dilated. Mild atherosclerosis. Bowel: No obstruction or bowel wall thickening. No evidence of appendicitis. Peritoneal Cavity: No ascites, collection or mesenteric inflammatory response. No free air. Lymph Nodes: Within normal limits. Bones: Within normal limits for the patient's age. Soft Tissues: Unremarkable. PELVIS: Bladder: Symmetric distention, no gross wall thickening. Reproductive Organs: Mildly enlarged. Lymph Nodes: Within normal limits. Bones: Within normal limits for the patient's age. IMPRESSION: No acute abdominal or pelvic process. RADIATION DOSE DELIVERED: 1,312.91mGy.cm Total DLP DATA REPOSITORY: All CT scans at this facility are submitted to the National Radiology Data Registry (NRDR) Dose Index Registry (DIR) with the [employer] (ACR). RADIATION OPTIMIZATION: All CT scans at this facility use at least one of these dose optimization te chniques: automated exposure control; mA and/or kV adjustment per patient size (includes targeted exa ms where dose is matched to clinical indication); or iterative reconstruction.
--- NOTE | 2021-07-01 16:09 | ED.GENADUL_ITS ---
Discharge Plan Disposition Patient Disposition: HOME Condition: Stable Discharge Details Clinical Impression: Perineal mass in male Primary Care Provider: Juan Menendez ED Provider: Shon Franklin Home Meds and New Rx's Prescriptions: Continued multivitamin Tablet 1 tab PO DAILY RF: 0 saw palmetto 450 mg Capsule 900 mg PO QPM RF: 0 famotidine 40 mg tablet 40 mg PO BID Qty: 60 RF: 3 Discharge Instructions Additional Instructions: Please follow-up with general surgery at [facility] [place] given concern for potential obturator hernia. Please contact your primary care physician to arrange follow-up. A PSA was pending at time of discharge. Please be sure to discuss this result with your doctor as soon as possible. Should this level be elevated, additional testing may be necessary. Return to the ER immediately for any worsening or new concerning symptoms. Referrals: Juan Menendez MD [Primary Care Provider] - Discharge Data Discharge Date/Time-TO BE ENTERED AT DEPARTURE: 07/01/21 18:24 Medical Decision Making 65-year-old male here with perineal mass that was present for about a week and now resolved after pain reviews manually by patient. CT of the abdomen pelvis was obtained to assess for acute surgical pathology and interpreted by radiology:IMPRESSION: 1. No evidence for acute abnormality in the abdomen or pelvis. 2. No significant change since the prior study. Prostate noted at the margin of 5 cm. I did discuss case with Dr. Fay who notes potential for obturator hernia and recommends follow-up at [facility] Results were discussed with the patient. Patient was advised to follow-up with surgery at [facility] and to return immediately should any worsening or new concerning symptoms Lab Data Lab results reviewed: Yes I reviewed the patient's lab results. Labs: Laboratory Tests Range/Units 07/01/21 07/01/21 07/01/21 10:20 15:04 15:35 WBC (4.4-10.8) 10^3/uL RBC (4.36-5.78) 10^6/uL Hgb (13.5-17.5) g/dL Hct (40.0-50.0) % MCV (80-95) fL MCH (27.0-33.0) pg MCHC (32.0-36.0) % RDW (11.8-14.1) % Plt Count (130-400) 10^3/uL MPV (8.0-11.0) fL Immature Gran % Neutrophils % Lymphocytes % Monocytes % Eosinophils % Basophils % Nucleated RBC % % Absolute Neutrophils (1.2-6.7) 10^3/uL Absolute Lymphocytes (1.2-3.4) 10^3/uL Absolute Monocytes (0.1-0.8) 10^3/uL Absolute Eosinophils (0.0-0.7) 10^3/uL Absolute Basophils (0.0-0.2) 10^3/uL Sodium (136-145) mmol/L 141 Potassium (3.5-5.1) mmol/L 4.1 Chloride (98-107) mmol/L 107 Carbon Dioxide (21.0-32.0) mmol/L 26.7 Anion Gap (3-11) mmol/L 7.3 BUN (7-18) mg/dL 14 Creatinine (0.70-1.30) mg/dL 1.0 Estimated GFR/1.73 m2 (mL/min/1.73m2) >= 60.00 Glucose (74-106) mg/dL 114 H Calcium (8.5-10.1) mg/dL 8.7 Total Bilirubin (0.2-1.0) mg/dL 0.3 AST (15-37) U/L 16 ALT (16-63) U/L 34 Alkaline Phosphatase (46-116) U/L 75 Total Protein (6.4-8.2) g/dL 7.3 Albumin (3.4-5.0) g/dL 3.6 PSA Screen (0.0-4.5) ng/mL Urine Color (Yellow) Yellow Urine Clarity (Clear) Clear Urine pH (5-8) 5.5 Ur Specific [place] (1.005-1.025) 1.025 Urine Protein (Negative) mg/dL Negative Urine Ketones (Negative) mg/dL Negative Urine Blood (Negative) Negative Urine Nitrite (Negative) Negative Urine Bilirubin (Negative) Negative Urine Urobilinogen (Up TO 0.2) EU/dL 1.0 H Ur Leukocyte Esterase (Negative) Negative Urine Glucose (Negative) mg/dL Negative COVID-19 Source Cancelled SARS-CoV-2 (PCR) Cancelled Range/Units 07/01/21 07/01/21 15:35 15:35 WBC (4.4-10.8) 10^3/uL 6.62 RBC (4.36-5.78) 10^6/uL 4.83 Hgb (13.5-17.5) g/dL 14.9 Hct (40.0-50.0) % 44.9 MCV (80-95) fL 93.0 MCH (27.0-33.0) pg 30.8 MCHC (32.0-36.0) % 33.2 RDW (11.8-14.1) % 12.0 Plt Count (130-400) 10^3/uL 185 MPV (8.0-11.0) fL 9.5 Immature Gran % 0.3 Neutrophils % 64.0 Lymphocytes % 20.1 Monocytes % 13.0 Eosinophils % 1.7 Basophils % 0.9 Nucleated RBC % % 0 Absolute Neutrophils (1.2-6.7) 10^3/uL 4.24 Absolute Lymphocytes (1.2-3.4) 10^3/uL 1.33 Absolute Monocytes (0.1-0.8) 10^3/uL 0.86 H Absolute Eosinophils (0.0-0.7) 10^3/uL 0.11 Absolute Basophils (0.0-0.2) 10^3/uL 0.06 Sodium (136-145) mmol/L Potassium (3.5-5.1) mmol/L Chloride (98-107) mmol/L Carbon Dioxide (21.0-32.0) mmol/L Anion Gap (3-11) mmol/L BUN (7-18) mg/dL Creatinine (0.70-1.30) mg/dL Estimated GFR/1.73 m2 (mL/min/1.73m2) Glucose (74-106) mg/dL Calcium (8.5-10.1) mg/dL Total Bilirubin (0.2-1.0) mg/dL AST (15-37) U/L ALT (16-63) U/L Alkaline Phosphatase (46-116) U/L Total Protein (6.4-8.2) g/dL Albumin (3.4-5.0) g/dL PSA Screen (0.0-4.5) ng/mL 1.1 Urine Color (Yellow) Urine Clarity (Clear) Urine pH (5-8) Ur Specific [place] (1.005-1.025) Urine Protein (Negative) mg/dL Urine Ketones (Negative) mg/dL Urine Blood (Negative) Urine Nitrite (Negative) Urine Bilirubin (Negative) Urine Urobilinogen (Up TO 0.2) EU/dL Ur Leukocyte Esterase (Negative) Urine Glucose (Negative) mg/dL COVID-19 Source SARS-CoV-2 (PCR) HPI General Mode of arrival: ambulatory . Date/Time Provider Initiated Documentation: 07/01/21 14:51 . Limitations to Documentation: no limitations . Information obtained by: patient . HPI Narrative: 65-year-old male presents with chief complaint of pain in his perineum. Symptoms started about a month ago prior to having colonoscopy. Symptoms worsened about a week ago. He noticed a lump in his perineal area which became larger over the past week and exquisitely painful. He does have hemorrhoids and notes this was not a hemorrhoid. Patient pushed the wall back internally and has signs of resolution of symptoms. No associated difficulty with urinating. No associated fever. Related Data Home Medications Medication Instructions Recorded Confirmed saw palmetto 900 mg PO QPM 12/04/20 07/01/21 multivitamin 1 tab PO DAILY 01/20/21 07/01/21 famotidine 40 mg PO BID #60 tab 06/01/21 07/01/21 Previous Rx's Medication Instructions Recorded famotidine 40 mg PO BID #60 tab 06/01/21 Allergies Allergy/AdvReac Type Severity Reaction Status Date / Time No Known Allergies Allergy Unverified 06/12/21 09:32 General Stated Complaint: GenMedical DEBBI: 3 Review of Systems All systems reviewed & are unremarkable except as noted in HPI and below Constitutional Constitutional: Denies fever(s) Gastrointestinal Gastrointestinal: Denies abdominal pain, Denies nausea and Denies vomiting [facility] Medical History Atypical chest pain pt. had pre op ECHO BPH (benign prostatic hyperplasia) Dyspnea Gastroesophageal reflux disease Surgical History History of hernia repair Hx of cholecystectomy Social History Smoking/Tobacco Use Status: Never Smoking risk assessment performed?: Yes Alcohol Intake: former Drug use: Never Substance use type: does not use Do you feel safe at home: Yes Do you feel safe in your relationship?: Yes Exam Const General: cooperative and no acute distress HENMT Head: normocephalic and atraumatic Mouth: moist mucous membranes Eyes Conjunctivae: normal conjunctivae Sclera: normal sclerae EOM: EOM intact bilaterally Neck Neck: trachea midline and supple Resp Auscultation: clear to auscultation bilaterally, no rales, no rhonchi and no wheezes Cardio Rate: regular rate and not tachycardic Rhythm: regular rhythm GI Palpation: soft, not firm, no guarding, no masses, not rigid and nontender Rectal Exam: hemorrhoids and No mass Scrotum: scrotum normal, no inguinal hernias and no masses Testes: normal Other: perineum nl Skin General skin exam: no rashes or lesions noted Neuro General: patient alert, patient awake, patient oriented x3 and tone normal Extrem General: no edema Psych Appearance: grossly normal Mental Status: mental status grossly normal Speech and Movement: speech and movement normal Course Vital Signs Vital signs: Vital Signs Temperature 36.2 C L 07/01/21 14:18 Pulse 77 07/01/21 14:18 Respiratory Rate 16 07/01/21 14:18 Blood Pressure 140/80 07/01/21 14:18 Pulse Oximetry 97 07/01/21 14:18 Temperature 36.2 C L 07/01/21 14:18 Temperature Source Tympanic 07/01/21 14:18 Pulse 77 07/01/21 14:18 Respiratory Rate 18 07/01/21 14:52 Respiratory Effort Non-Labored 07/01/21 14:52 Respiratory Depth Normal 07/01/21 14:52 Respiratory Pattern Normal 07/01/21 14:52 Blood Pressure 140/80 07/01/21 14:18 Blood Pressure Position Sitting 07/01/21 14:18 Pulse Oximetry 97 07/01/21 14:18 Oxygen Delivery Method Room Air 07/01/21 14:18 Oxygen Flow Rate 0 07/01/21 14:18 Pain Level 2 07/01/21 14:18 Lab/Test Results Lab/Test Results: Laboratory Tests Range/Units 07/01/21 07/01/21 10:20 15:35 WBC (4.4-10.8) 10^3/uL 6.62 RBC (4.36-5.78) 10^6/uL 4.83 Hgb (13.5-17.5) g/dL 14.9 Hct (40.0-50.0) % 44.9 MCV (80-95) fL 93.0 MCH (27.0-33.0) pg 30.8 MCHC (32.0-36.0) % 33.2 RDW (11.8-14.1) % 12.0 Plt Count (130-400) 10^3/uL 185 MPV (8.0-11.0) fL 9.5 Immature Gran % 0.3 Neutrophils % 64.0 Lymphocytes % 20.1 Monocytes % 13.0 Eosinophils % 1.7 Basophils % 0.9 Nucleated RBC % % 0 Absolute Neutrophils (1.2-6.7) 10^3/uL 4.24 Absolute Lymphocytes (1.2-3.4) 10^3/uL 1.33 Absolute Monocytes (0.1-0.8) 10^3/uL 0.86 H Absolute Eosinophils (0.0-0.7) 10^3/uL 0.11 Absolute Basophils (0.0-0.2) 10^3/uL 0.06 Urine Color (Yellow) Yellow Urine Clarity (Clear) Clear Urine pH (5-8) 5.5 Ur Specific [place] (1.005-1.025) 1.025 Urine Protein (Negative) mg/dL Negative Urine Ketones (Negative) mg/dL Negative Urine Blood (Negative) Negative Urine Nitrite (Negative) Negative Urine Bilirubin (Negative) Negative Urine Urobilinogen (Up TO 0.2) EU/dL 1.0 H Ur Leukocyte Esterase (Negative) Negative Urine Glucose (Negative) mg/dL Negative PAWSS Pt Consumed Any Amount of Alcohol Within the Last 30 days OR had positive LICHA Upon Admission: No
[2021-07-01 16:21] LABS: ALT 34 U/L (16-63); AST 16 U/L (15-37); Albumin 3.6 g/dL (3.4-5.0); Alkaline Phosphatase 75 U/L (46-116); Anion Gap 7.3 mmol/L (3-11); BUN 14 mg/dL (7-18); Bilirubin, Total 0.3 mg/dL (0.2-1.0); CO2 26.7 mmol/L (21.0-32.0); Calcium 8.7 mg/dL (8.5-10.1); Chloride 107 mmol/L (98-107); Glucose 114 mg/dL (74-106); Potassium 4.1 mmol/L (3.5-5.1); Sodium 141 mmol/L (136-145); Total Protein 7.3 g/dL (6.4-8.2)
[2021-07-01] MEDS: Omnipaque 350 MG/ML 100 ML BTL IJ (17:30)
[2021-07-01] MEDS: Normal Saline - Diluent 50 ML VIAL IV (17:30)
--- NOTE | 2021-07-01 17:52 | DI.VRAD_ITS ---
PROCEDURE INFORMATION: Exam: CT Abdomen And Pelvis With Contrast Exam date and time: 07/01/2021 4:09 PM Age: 65 years old Clinical indication: Other: Pain in perineum with swelling, PT reduced mass TECHNIQUE: Imaging protocol: Computed tomography of the abdomen and pelvis with contrast. COMPARISON: CT CHEST PE ABD PELVIS W 12/04/2020 12:44 PM FINDINGS: Lungs: The visualized lung bases are clear. Liver: Unremarkable. No evidence for a mass. Gallbladder and bile ducts: There has been a cholecystectomy. Pancreas: Unremarkable. No ductal dilation. Spleen: Unremarkable. No splenomegaly. Adrenal glands: Unremarkable. No mass. Kidneys and ureters: There is a stable 2 mm calculus in the left renal collecting system. There is no hydronephrosis. Stomach and bowel: Unremarkable. No obstruction. No mucosal thickening. Appendix: No evidence of appendicitis. Intraperitoneal space: Unremarkable. No free air. No significant fluid collection. Vasculature: Unremarkable. No abdominal aortic aneurysm. Lymph nodes: Unremarkable. No enlarged lymph nodes. Urinary bladder: Unremarkable as visualized. Reproductive: The prostate is enlarged measuring 5 cm in span. Bones/joints: Unremarkable. No acute fracture. Soft tissues: Unremarkable. IMPRESSION: 1. No evidence for acute abnormality in the abdomen or pelvis. 2. No significant change since the prior study. Dictated and Authenticated by: Yahir Sibley MD. Ordering:LADARIUS Menendez MD
[2021-07-01 18:05] VITALS: BP 124/87; PULSE 73; RESP 16; TEMP 36.4; O2SAT 97
[2021-07-01 18:15] VITALS: BP 124/87; PULSE 73; RESP 16; TEMP 36.4; O2SAT 97
[2021-07-02 17:57] LABS: PSA, Screening 1.1 ng/mL (0.0-4.5)
== END 2021-07-01 18:24 | disposition home or self-care (01) ==
PROVIDERS: Emergency Provider Student in an Organized Health Care Education/Training Program; PCP Family Medicine
DX: R19.09 Other intra-abdominal and pelvic swelling, mass and lump (principal); R10.2 Pelvic and perineal pain; N40.0 Benign prostatic hyperplasia without lower urinary tract symptoms; Z12.5 Encounter for screening for malignant neoplasm of prostate
CPT/HCPCS: 36415; 80053; 84153; 87635; 99285; 74177; 81003; 85025; 99284; J3490

== ENCOUNTER 2023-12-07 09:47 | Outpatient (REF) | payer MEDICARE, SELFPAY ==
[2023-12-07 14:35] LABS: HCT 44.1 % (40.0-50.0); HGB 15.4 g/dL (13.5-17.5); MCH 31.6 pg (27.0-33.0); MCHC 34.9 % (32.0-36.0); MCV 91 fL (80-95); MPV 9.7 fL (8.0-11.0); Platelet Count 201 10^3/uL (130-400); RBC 4.87 10^6/uL (4.36-5.78); RDW 12.1 % (11.8-14.1); RDW-SD 40.1 fL; WBC 4.52 10^3/uL (4.4-10.8)
[2023-12-07 15:17] LABS: ALT 29 U/L (16-63); AST 16 U/L (15-37); Albumin 3.7 g/dL (3.4-5.0); Alkaline Phosphatase 72 U/L (46-116); Anion Gap 8.9 mmol/L (3-11); BUN 12 mg/dL (7-18); Bilirubin, Total 0.6 mg/dL (0.2-1.0); CO2 27.1 mmol/L (21.0-32.0); Calcium 9.5 mg/dL (8.5-10.1); Calculated LDL 134 mg/dL (<100); Chloride 107 mmol/L (98-107); Cholesterol 204 mg/dL (<200); Estimated GFR 81.47 (mL/min/1.73m2); Glucose 92 mg/dL (74-106); HDL Cholesterol 50 mg/dL (40-60); Potassium 4.3 mmol/L (3.5-5.1); Sodium 143 mmol/L (136-145); Total Protein 6.7 g/dL (6.4-8.2); Triglyceride 102 mg/dL (<150)
== END 2023-12-07 09:48 | disposition home or self-care (01) ==
LOC: NCHCN 09:47
PROVIDERS: PCP Family Medicine; Referring Provider Family Medicine; Visit Provider Family Medicine
DX: Z00.00 Encounter for general adult medical examination without abnormal findings (principal)
CPT/HCPCS: 80053; 80061; 85027